=== PATIENT | female | born 1945 | race Caucasian/White ===

== ENCOUNTER 2023-04-20 09:40 | Outpatient (CLI) | payer MEDICARE, BC, SELFPAY | END 2023-04-20 09:41 | disposition home or self-care (01) | PROVIDERS: PCP Family Medicine; Referring Provider Family Medicine; Visit Provider Obstetrics & Gynecology | DX: N34.2 Other urethritis (principal) | CPT/HCPCS: 87086 ==

== ENCOUNTER 2023-04-24 08:36 | Outpatient (CLI) | payer MEDICARE, BC, SELFPAY ==
--- NOTE | 2023-04-24 09:15 | CRLHL7_ITS ---
For Patients: As a result of the Century Cures Act, medical imaging exams and procedure reports are released immediately into your electronic medical record. You may view this report before your referring provider. If you have questions, please contact your health care provider. INDICATION: Right lower quadrant pain COMPARISON: none TECHNIQUE: 2D clifford scale and color Doppler images were acquired of the pelvis using a transabdominal approach. FINDINGS: The bladder appears normal. No ascites. No pelvic mass. Status post hysterectomy and bilateral oophorectomy. IMPRESSION: Negative targeted pelvic ultrasound. Dictated by Bony Rubio MD @ 04/24/2023 12:44:15 PM (Electronically Signed)
== END 2023-04-24 08:37 | disposition home or self-care (01) ==
LOC: US 08:37
PROVIDERS: PCP Family Medicine; Visit Provider Obstetrics & Gynecology
DX: R10.31 Right lower quadrant pain (principal)
CPT/HCPCS: 76857